=== PATIENT | female | born 1980 | race African-American/Black ===

== ENCOUNTER 2017-09-02 12:43 | Outpatient (CLI) | payer OTHER | END 2017-09-02 12:44 | disposition home or self-care (01) | LOC: DTY/OP 12:43 | PROVIDERS: ATTEND Specialist | DX: Z01.818 Encounter for other preprocedural examination (principal); E66.01 Morbid (severe) obesity due to excess calories | CPT/HCPCS: 36415; 80053; 80061; 82306; 82607; 82728; 82746; 83036; 83540; 84425; 84436; 84443; 84479; 85025; 86677; 97802 ==

== ENCOUNTER 2017-09-30 06:12 | Inpatient (IN) | payer OTHER ==
[2017-09-28 17:24] VITALS: BMI 46.0
--- NOTE | 2017-09-29 13:58 | ADD-HP ---
ADDENDUM HISTORY OR PRESENT ILLNESS: Brenda Mathews is a 36-year-old female with morbid obesity, attended ou r bariatric seminar and saw me preoperatively and has seen the psychologist and visited with Olga dietitian regarding perioperative dietary expectations and has obtained baseline bariatric labs in preparation for laparoscopic sleeve gastrectomy. She understands the risks and benefits of procedure and consents. Plan is for laparoscopic gastric bypass in the next 48 hours. The patient works in [employer]. She has tried numerous diets including Medi-Loss and phentermine without sustainable success in weight loss. When she was initially seen 08/25/2017 weight was 289 pounds, 46 BMI. Today it is 286 pounds, 46 BMI. PAST MEDICAL HISTORY: Please see recent history and physical. PHYSICAL EXAMINATION: GENERAL: 286 pounds, 133/68, 80 heart rate, 97 degrees, 5 feet 6 inches, 46 BMI. LUNGS: Clear to auscultation. CARDIAC: Regular rate and rhythm without murmur or gallop. ABDOMEN: Soft, nontender, extremely obese. EXTREMITIES: Unremarkable. ASSESSMENT: 46 BMI, 286 pounds. PLAN: Laparoscopic gastric bypass. She understands the risk of infection, bleeding, reoperation, an astomotic leakage and consents. Questions answered.
--- NOTE | 2017-09-29 14:01 | HP ---
HISTORY OF PRESENT ILLNESS: Brenda Mathews is a 36-year-old morbidly back female, 46 BMI, 5 feet 6 inches, 289 pounds, who has tried numerous weight loss efforts including Mediwatch, diet, phentermine losing only up to 10 or 15 pounds after several months efforts without durable results. She suffers comorbidities of diabetes mellitus type 2 on metformin, low back pain, arthralgias, and stress urina ry incontinence. 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 Her also works for the [employer]. They have both recently joined [employer] discovering that their emplo kash [facility] [employer] and pay for that. The patient has attended our bariatric seminar and is inte rested in laparoscopic Alyse-en-Y gastric bypass. She hopes to resolve her diabetes, be more interact heather with her children, see them grow up and prevent additional complications of diabetes and obesity. She has had friends that have undergone surgical weight loss and they have talked about this and sh e is ready to proceed. She is tearing at our bariatric seminar and understands the risk and benefits of surgery. Questions have been answered. Different surgical options discussed. Primary care phys ivánan is Dr. Gray who was very supportive of her surgical weight loss and her is very suppo rtive. She is a 3, para 3 children 10, 3, and 1 years of age. PAST SURGICAL HISTORY: Cholecystectomy, laparoscopic; left ankle surgery, wisdom tooth surgery, sali vary gland surgery for benign disease, with washout after that. MEDICATIONS: Metformin 850 twice a day and escitalopram once a day. ALLERGIES: ERYTHROMYCIN and PERCOCET. TOBACCO: None. ALCOHOL: None. PAST MEDICAL HISTORY: Diabetes mellitus type 2, noninsulin dependent, low back pain, arthralgias, kn ees and ankles; and stress urinary incontinence. REVIEW OF SYSTEMS: Ten point noncontributory. PHYSICAL EXAMINATION: VITAL SIGNS: 5 foot 6, 46 BMI, 289 pounds, 153/72, 84, 98 degrees. HEENT: Unremarkable. NEUROLOGIC: Intact. No focal deficits. No lymphadenopathy, neck, axillary or groins. LUNGS: Clear to auscultation. CARDIAC: Regular rate and rhythm without murmur or gallop. ABDOMEN: Soft, nontender. Obese. Infraumbilical incision present. Well-healed. Pfannenstiel inci casa from , abdominal washout, well healed. No hernias. Laparoscopic cholecystectomy. Tro car sites well healed. No hernias. EXTREMITIES: No ankle edema, no venous stasis disease. 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 She has a 46 BMI. After co nsidering her bariatric options, she is interested in laparoscopic sleeve gastrectomy. We have talke d about the risk of infection, bleeding, reoperation, anastomotic leakage, internal hernias. She und erstands risks, benefits, and consents. She will see the dietitian, psychologist, obtain baseline ba riatric labs and proceed with bariatric surgery.
[2017-09-30] MEDS ORDERED: Bupivacaine/Epinephrine 0.25% 30 ML VIAL ONE (06:32)
[2017-09-30] MEDS ORDERED: cefOXitin 2 GM, Syringe 1 ML in Sterile Water 10 ML SLOW IVP SCH (07:00)
[2017-09-30] MEDS ORDERED: Fentanyl 100 MCG/2 ML VIAL ONE ×3 (07:03→11:55)
[2017-09-30] MEDS ORDERED: Ketorolac Tromethamine 30 MG/ML VIAL ONE (07:04)
[2017-09-30] MEDS ORDERED: Scopolamine 1.5 mg/72 hour Patch ONE (07:04)
[2017-09-30] MEDS ORDERED: Heparin 5,000 UNITS/ML VIAL ONE (07:05)
[2017-09-30] MEDS ORDERED: Ondansetron ODT 4 MG TAB ONE (07:16)
[2017-09-30] MEDS ORDERED: SUGAMMADEX SODIUM 500 MG/5 ML VIAL ONE (09:00)
[2017-09-30] MEDS ORDERED: Promethazine HCl 25 MG/ML VIAL SLOW IVP PRN (11:05)
[2017-09-30] MEDS ORDERED: Promethazine HCl 25 MG/ML VIAL IM PRN ×3 (11:05→20:47)
[2017-09-30] MEDS ORDERED: Ondansetron HCl/PF 4 MG/2 ML Vial IVP PRN ×3 (11:05→20:47)
[2017-09-30] MEDS ORDERED: Promethazine HCl 25 MG/ML VIAL ONE (11:11)
[2017-09-30] MEDS ORDERED: Morphine 4 MG/ML Carpuject SLOW IVP PRN (11:19)
[2017-09-30] MEDS ORDERED: hydrALAZINE 20 MG/ML VIAL SLOW IVP PRN (11:19)
[2017-09-30] MEDS ORDERED: Hydrocodone-Acetamin 15 ML UDCUP PO PRN (11:19)
[2017-09-30] MEDS ORDERED: Dextrose 5% in Water 1,000 ML IV PRN ×2 (11:19→19:04)
[2017-09-30] MEDS ORDERED: diphenhydrAMINE 50 MG/ML VIAL IVP PRN ×2 (11:19→20:47)
[2017-09-30] MEDS ORDERED: Dextrose 50% Abboject 50 ML SYRINGE SLOW IVP PRN ×2 (11:19→19:04)
[2017-09-30] MEDS ORDERED: Ondansetron ORAL SOLN. 4 MG/5 ML UDCUP PO PRN ×2 (11:24)
[2017-09-30] MEDS ORDERED: Ondansetron ODT 4 MG TAB PO PRN (11:24)
[2017-09-30] MEDS ORDERED: Ondansetron ODT 8 MG TAB PO PRN (11:24)
[2017-09-30] MEDS ORDERED: Ondansetron ODT 8 MG TAB SL PRN (11:24)
[2017-09-30] MEDS ORDERED: Acetaminophen 325 MG/10.15 ML UDCUP PO PRN ×2 (11:26)
[2017-09-30] MEDS ORDERED: PROPOFOL 200 MG/20 ML VIAL ONE (12:04)
[2017-09-30] MEDS ORDERED: Lidocaine 1% PF 5 ML VIAL ONE (12:04)
[2017-09-30] MEDS ORDERED: Dexamethasone 20 MG/5 ML VIAL ONE (12:04)
[2017-09-30] MEDS ORDERED: Succinylcholine Chloride 20 MG/ML 10 ml SYRINGE FS ONE (12:04)
--- NOTE | 2017-09-30 12:27 | OP ---
DATE OF PROCEDURE: 09/30/2017 PREOPERATIVE DIAGNOSES: Morbid obesity, 46 BMI, 289 pounds. POSTOPERATIVE DIAGNOSES: Morbid obesity, 46 BMI, 289 pounds. PROCEDURE: Laparoscopic Alyse-en-Y gastric bypass, 150 cm Alyse limb, 25 mm EEA stapler. ESTIMATED BLOOD LOSS: Less than 25 mL. BLOOD TRANSFUSED: None. Gastrojejunostomy checked under water, no leaks. PROCEDURE: The patient was taken to the operating room where under general anesthesia, abdomen prepa red with ChloraPrep, draped in routine fashion. Supraumbilical incision made and pneumoperitoneum to 15 mmHg obtained with the Veress needle, replacing it with a 5 port and video laparoscope inserted. Bilateral far lateral subcostal incision made and 5 ports placed. Bilateral upper abdominal midclav icular incisions made and 12 mm port placed on the right and 15 mm port placed on the left, subxiphoi d incision made using the Oracio's arm retractor. The Tyra liver retractor was inserted in the abdominal cavity, reflecting the left lobe of the liver anteriorly and securing it. With the patient supine the greater omentum was adherent to the pelvis, abdominal wall and this was taken down with t he LigaSure. Omentum was split in the midline to the left of the falciform ligament up to the transv erse colon and split using the LigaSure noting good hemostasis. At this point, the colon reflected c ephalad and ligament of Treitz identified and approximately 20 cm from the ligament of Treitz, small bowel was divided with a CHELO white load stapler and the mesentery divided with CHELO white load stapler . Hemostasis gained with clips. The Alyse limb was devascularized approximately 5 cm. Alyse limb was then measured for about 150 cm and then a jejunojejunostomy anastomosis created between the Alyse barr b and the biliary limb with a CHELO 60 mm white load stapler. Common enterotomy closed with 2 fires of the white load stapler transversely and appreciated after completion to be nonobstructive. Mesenter ic defect closed with 2 interrupted [id number] sutures of 3-0 Vicryl. Small bowel to small marco l, seromuscular suture applied, 3-0 Vicryl to close this defect. At this point, the Alyse limb was th en brought between the split omentum into the left upper quadrant and the patient placed in reverse T rendelenburg. Along the lesser curvature of the stomach, the stomach dissected free and posterior sa c entered, visualized and all instruments removed from the oral cavity from the stomach by Anesthesia and a single fire blue load CHELO Endo stapler fired approximately 5 cm from the gastroesophageal junc tion along the lesser curvature, fired transversely. At this point, a gastrostomy was made with the LigaSure in the greater curvature of stomach just below this level and 25 mm EEA stapler inserted up towards the stomach pouch. The 5 mm band passer had been threaded with the attached suture and broug ht up and passed through the gastrostomy adjacent to the initially fired horizontal gastric staple li ne and cutting cautery current adjacent staple line used to open the stomach and the suture and anvil brought out through this jasper. The suture on the anvil was then grasped and reflected caudally and right lateral as the gastric pouch was formed with serial fires of the blue load stapler just to the patient's left of the angle of His. This has been cleared of attachments and the band passer used to facilitate this and stomach completely divided, the spleen kept free of harm. The gastrostomy initi ally made for placement of the anvil, closed with 2 fires transversely with a blue load CHELO stapler. Staple line was intact. Hemostasis gained with clip application. At this point, the Alyse limb was opened at the end and a 25 mm EEA stapler passed through the left upper quadrant port site and to the end of the Alyse limb and the anvil advanced out the antimesenteric border of a portion of the well v ascularized small bowel Alyse limb. This was then mated to the anvil in the stomach pouch where the _ ___ could be removed. These were then approximated within the torque fire range and the EEA stapler fired, creating a 25 mm EEA stapled gastrojejunostomy anastomosis. Once this was complete, the opene d end of the small bowel was resected with a fire of the CHELO white load stapler. The gastrojejunosto my anastomosis reinforced with 3-0 Vicryl Lembert sutures approximating the small bowel at the gastri c pouch, left posterior lateral, right posterolateral and right anterior lateral. Once this was acco mplished, this gastrojejunostomy was checked under water with an orogastric tube placed by Anesthesia passed through the gastrojejunostomy, the gastrojejunostomy visualized laparoscopically occluding th e outlet of the Alyse limb from the gastrojejunostomy with an atraumatic vascular clamp and insufflati ng under water, noting absence of any leak. Good hemostasis noted. The orogastric tube removed. Go od hemostasis assured. The 15 mm port site was closed with a [id number]-[id number] suture of 0 Vicryl pass ed with a GraNee needle under laparoscopic visualization. Good hemostasis noted and obtained with th e LigaSure, cautery, clips. Good hemostasis ensured. The liver retractor was removed and an irrigan t and pneumoperitoneum evacuated. All this instruments removed and the 15 mm port site left upper qu adrant irrigated with saline solution copiously and good hemostasis noted and all skin incisions appr oximated with interrupted subdermal 4-0 Monocryl and DermaGlue applied. The patient tolerated the pr ocedure well.
[2017-09-30] MEDS: Ketorolac Tromethamine 30 MG/ML VIAL IVP SCH ×3 (13:16→23:30)
[2017-09-30] MEDS: Acetaminophen 1,000 MG in Premix Bag 1 BAG IVPB SCH ×3 (13:16→23:30)
[2017-09-30] MEDS: 1/2 NS w/KCL 20 mEq 1,000 ML IV SCH ×2 (13:17→21:29)
[2017-09-30] MEDS ORDERED: Fentanyl 100 MCG/2 ML VIAL SLOW IVP PRN (15:20)
[2017-09-30] MEDS ORDERED: Fentanyl 100 MCG/2 ML VIAL SLOW IVP SCH (15:30)
[2017-09-30] MEDS: Fentanyl 100 MCG/2 ML VIAL SLOW IVP PRN ×2 (17:26→19:57)
[2017-09-30] MEDS ORDERED: Metoclopramide HCl 10 MG/2 ML VIAL IVP PRN (18:23)
[2017-09-30] MEDS ORDERED: HumaLOG 300 UNITS/3 ML VIAL SC PRN (19:04)
[2017-09-30] MEDS ORDERED: traMADol HCl 50 MG TAB PO PRN ×2 (19:04)
[2017-09-30] MEDS ORDERED: Fentanyl 5000 MCG/250 ML CADD IVPB PRN (20:47)
[2017-09-30] MEDS ORDERED: diphenhydrAMINE 50 MG/ML VIAL IM PRN (20:47)
[2017-09-30] MEDS ORDERED: Zolpidem Tartrate 5 MG TAB PO PRN (20:47)
[2017-09-30] MEDS ORDERED: diphenhydrAMINE 25 MG CAP PO PRN (20:47)
[2017-09-30] MEDS ORDERED: Naloxone HCl 0.4 mg/ml Vial IV PRN (20:47)
[2017-09-30] MEDS ORDERED: Enoxaparin Sodium 40 MG/0.4 ML SYRINGE SC SCH (21:00)
[2017-09-30] MEDS ORDERED: Communication Order-Pharmacy FS SCH (21:00)
[2017-09-30] MEDS: fentaNYL Citrate/PF 2,000 MCG in Sodium Chloride 0.9% 60 ML IV PRN (21:44)
[2017-10-01 04:57] LABS: #Lymphocytes 1.1 thou/uL (1.20-3.40); #Monocytes 0.9 thou/uL (0.11-0.59); #Neutrophils 7.8 thou/uL (1.40-6.50); %Eosinophils 0.1 % (0.0-10.0); %Lymphocytes 11.5 % (21.0-51.0); %Monocytes 9.1 % (0.0-10.0); %Neutrophils 79.3 % (42.0-75.0); Hemoglobin 10.1 g/dL (12.0-16.0); Mean Corpuscular HGB CONC 34.1 g/dL (32.0-36.0); Mean Corpuscular Hemoglobin 28.4 pg (27.0-31.0); Mean Corpuscular Volume 83.3 fl (81.0-99.0); Mean Platelet Volume 7.1 fL (7.4-10.4); Platelet Count 277 thou/uL (130-400); RBC Distribution Width 13.9 % (11.5-14.5); Red Blood Cell (RBC) Count 3.56 mill/uL (4.20-5.40); White Blood Cell (WBC) Count 9.9 thou/uL (4.8-10.8)
[2017-10-01] MEDS: Acetaminophen 1,000 MG in Premix Bag 1 BAG IVPB SCH ×2 (05:10→15:04)
[2017-10-01] MEDS: Ketorolac Tromethamine 30 MG/ML VIAL IVP SCH ×3 (05:10→18:16)
[2017-10-01 05:15] LABS: Anion Gap 9 mmol/L (10-20); BUN (Urea Nitrogen) 9 mg/dL (7.0-18.7); Calc. Creatinine Clearance 203 mL/min (70-130); Calcium 8.3 mg/dL (7.8-10.44); Carbon Dioxide 24 mmol/L (22-29); Chloride 105 mmol/L (98-107); Estimated GFR-MDRD Greater than 90; Glucose 126 mg/dL (70-105); Potassium 3.9 mmol/L (3.5-5.1); Sodium 134 mmol/L (136-145)
[2017-10-01] MEDS: 1/2 NS w/KCL 20 mEq 1,000 ML IV SCH ×2 (06:14→15:03)
--- NOTE | 2017-10-01 06:30 | PRG ---
DATE OF SERVICE: 10/01/2017 Brenda Mathews is doing well today. I had a discussion with the patient last night and she states t hat with her oxycodone allergy she can take Tylenol #3. The patient had problems with nausea last n ight and has not ambulated. Her nausea this morning has resolved. She feels much better. The pain in her left upper quadrant is greatly improved. She required a fentanyl EGG SORTER last night. PHYSICAL EXAMINATION: VITAL SIGNS: Temperature 98.5 degrees, 88, 17, 120/72. LABORATORY: This morning her white count is 9, hemoglobin 10.1, sodium 134, BUN 9, creatinine 0.78, potassium 3.9. Accu-Cheks 137 to 128. ASSESSMENT AND PLAN: The patient is doing well today. She will begin liquids, increase her activity and she possibly could be discharged home later today. I have discussed with her her pain medicatio n management. We will plan Tylenol elixir orally as needed, Ultram pills (they are small) cut in luke f or thirds (status post gastric bypass) and she has Tylenol #3 elixir to use if necessary. She has Zofran ODT as necessary. The patient possibly could be discharged home later today or in the morning pending her clinical course today. LUNGS: Clear to auscultation. CARDIAC: Regular rate and rhythm without murmur or gallop. ABDOMEN: Soft, nontender. Wounds clean and dry. PLAN: As above.
[2017-10-01] MEDS ORDERED: Pantoprazole 40 MG VIAL IVP SCH (09:00)
[2017-10-01 12:38] LABS: Hemoglobin 9.4 g/dL (12.0-16.0)
[2017-10-01] MEDS ORDERED: Lidocaine 1% PF 5 ML VIAL ONE (12:54)
[2017-10-01] MEDS ORDERED: PROPOFOL 200 MG/20 ML VIAL ONE (12:54)
[2017-10-01] MEDS ORDERED: Succinylcholine Chloride 20 MG/ML 10 ml SYRINGE FS ONE (12:54)
--- NOTE | 2017-10-01 16:41 | NM ---
RADIONUCLIDE GI BLEEDING SCAN 10/01/17 HISTORY: Melena. Recent Alyes-En-Y gastric bypass. FINDINGS: Early images show physiologic uptake of radiotracer within the vascular system. At two minutes, abnor mal uptake is apparent within the left upper quadrant, becoming more intense and eventually descendin g to the left lower abdomen in an irregular direction, and eventually extending to the right abdomen. IMPRESSION: Left upper quadrant enteric hemorrhage. The appearance is most suggestive of a proximal small bowel h emorrhage. In the setting of recent gastric bypass, the bleeding origin could be within a gastric rem nant that does not flow into the duodenum, as the duodenum is not filled with the radiotracer. Findings were called to Dr. Serna at 1559 hours. Code CR POS: OCTAVIO
[2017-10-01 17:21] LABS: Hemoglobin 8.3 g/dL (12.0-16.0)
[2017-10-01] MEDS ORDERED: Acetaminophen/Codeine 12.5 ML UDCUP PO PRN (18:00)
[2017-10-01] MEDS ORDERED: Lactated Ringer's 1,000 ML IV SCH (18:00)
[2017-10-01] MEDS: Lactated Ringer's 1,000 ML IV SCH (19:05)
--- NOTE | 2017-10-01 19:06 | PRG ---
DATE OF SERVICE: 10/01/2017 She, after I saw her this morning, developed a bloody bowel movement. This was maroon bloody stool. She had three bloody bowel movements this morning, but since 1 o'clock has not had any. She complai ns of left upper quadrant pain. Her preoperative hemoglobin was 13, this morning, it was 10.1 at 040 0 hours, at noon it was 9.4 and at 0511 hours, it was 8.3. Her blood pressure and heart rate have re mained stable until in the last 30 minutes, her blood pressure has been systolic 80-90 with a normal heart rate in the 80s. She feels slightly weak. She has been ambulating, tolerating her liquids. S he had a nuclear bleeding scan suggesting ongoing bleeding in her upper abdomen, suspect gastrojejuno stomy. I have talked to Dr. Bucky Nye who had seen her who will plan upper endoscopy this evening . We were trying to avoid this, but does not seem to be avoidable. We will transfuse 1 unit of bloo d, give her a liter of LR IV and transfer her to the [facility] for closer observation.
[2017-10-01] MEDS ORDERED: Ondansetron HCl/PF 4 MG/2 ML Vial IVP PRN (20:59)
[2017-10-01] MEDS ORDERED: Meperidine HCl/PF 25 MG/ML VIAL SLOW IVP PRN (20:59)
[2017-10-01] MEDS ORDERED: Promethazine HCl 25 MG/ML VIAL SLOW IVP PRN (20:59)
[2017-10-01] MEDS ORDERED: Promethazine HCl 25 MG/ML VIAL IM PRN (20:59)
[2017-10-01] MEDS ORDERED: Fentanyl 100 MCG/2 ML VIAL ONE (21:25)
[2017-10-01 22:18] LABS: #Eosinphils 0.2 thou/uL (0.0-0.7); #Lymphocytes 2.3 thou/uL (1.20-3.40); #Monocytes 0.8 thou/uL (0.11-0.59); #Neutrophils 6.1 thou/uL (1.40-6.50); %Basophils 0.1 % (0.0-1.0); %Lymphocytes 24.8 % (21.0-51.0); %Monocytes 8.2 % (0.0-10.0); %Neutrophils 64.9 % (42.0-75.0); Hemoglobin 8.2 g/dL (12.0-16.0); Mean Corpuscular HGB CONC 33.5 g/dL (32.0-36.0); Mean Corpuscular Hemoglobin 28.1 pg (27.0-31.0); Mean Corpuscular Volume 83.8 fl (81.0-99.0); Mean Platelet Volume 7.1 fL (7.4-10.4); Platelet Count 235 thou/uL (130-400); RBC Distribution Width 14.2 % (11.5-14.5); Red Blood Cell (RBC) Count 2.93 mill/uL (4.20-5.40); White Blood Cell (WBC) Count 9.4 thou/uL (4.8-10.8)
[2017-10-01] MEDS: Pantoprazole 40 MG VIAL IVP SCH (22:58)
[2017-10-02] MEDS: Ketorolac Tromethamine 30 MG/ML VIAL IVP SCH ×4 (00:29→18:33)
--- NOTE | 2017-10-02 00:44 | CON ---
DATE OF CONSULTATION: 10/01/2017 REASON FOR CONSULTATION: Hematochezia, status post Alyse-en-Y gastric bypass. CONSULTING PHYSICIAN: Dr. Sheldon Serna. HISTORY OF PRESENT ILLNESS: Patient is a 37-year-old -[place] female with past medical histo ry of diabetes, chronic lower back pain, stress urinary incontinence, and morbid obesity who presents with complaints of hematochezia. She had been followed by the general surgery service for her morbi d obesity with plans to undergo Alyse-en-Y gastric bypass, which was performed on 09/30/2017. She was having a fairly uneventful recovery until this morning when she had an occurrence of bright red bloo d per rectum, characterized as maroonish colored stool that was present in both the toilet and on the toilet paper. The amount of this bloody stool was significant to the point to alert the nursing sta ff. Since that time, she has had two further maroon-colored stools associated with mild diaphoresis with increased concern for GI bleeding. She ultimately underwent a nuclear bleeding scan which sugge sted ongoing bleeding in the upper abdomen with consideration for the gastrojejunostomy. Currently, she denies any nausea, vomiting, fevers, chills, shortness of breath, chest pain, melena, dysphagia o r odynophagia. She does continue to have some minimal abdominal pain located at the left upper quadr ant directly underneath one of the trocar incision sites. REVIEW OF SYSTEMS: A 10-point review category review of systems was obtained with all responses nega tive except for the pertinent positives as listed in the HPI. PAST MEDICAL HISTORY: Per HPI. PAST SURGICAL HISTORY: Laparoscopic cholecystectomy, left ankle surgery, salivary gland surgery for benign disease, with washout. FAMILY HISTORY: Denies any GI malignancies. SOCIAL HISTORY: Denies any tobacco, alcohol or illicit drug use. OUTPATIENT MEDICATIONS: Reviewed. ALLERGIES: ERYTHROMYCIN and PERCOCET. PHYSICAL EXAMINATION: VITAL SIGNS: Temperature 98.8, pulse 87, blood pressure 113/47, respiratory rate 18, satting 98% on room air. GENERAL: The patient is lying in bed in no acute distress. Alert and oriented x4. NECK: Supple. No JVD noted. CARDIOVASCULAR: Regular rate and rhythm with no discernible murmurs, gallops or rubs. RESPIRATORY: Clear to auscultation bilaterally with no discernible wheezes or rales. ABDOMEN: Normoactive bowel sounds, soft, nondistended. Tenderness to palpation along the incision t rocar sites especially in the left upper quadrant. Incision sites look clean, dry, and intact. EXTREMITIES: No cyanosis, clubbing or edema. LABORATORY DATA: CBC with a white blood cell count of 9.9, hemoglobin of 8.3, hematocrit 24.8, plate lets 277. Chemistry with sodium of 134, potassium 3.9, chloride 105, carbon dioxide 24, BUN 9, creat inine 0.78, glucose 126. IMAGING DATA: Tagged red blood cell scan obtained on 10/01/2017 showed abnormal uptake apparent with in the left upper quadrant, becoming more intense and eventually descending to the left lower abdomen in a regular direction and eventually extending to the right abdomen. This is suggestive of a proxi mal small bowel hemorrhage and in light of the recent gastric bypass, bleeding could be within a hakeem ramona remnant that does not flow into the duodenum. 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 Hematochezia. The patient is now presenting status post Alyse-en-Y gastric bypass on 09/30/2017 and h ad been undergoing a fairly uneventful recovery when she had acute onset of bright red blood per rect um this morning. She had two further episodes of hematochezia that was associated with a mild drop i n her blood pressure as well as a significant decrease in her H&H, concern for active gastrointestina l bleeding. A tagged red cell scan was subsequently performed that was suggestive of proximal small bowel hemorrhage. At this point, the origin of the bleeding is unknown, but is suggestive of possibl e bleeding at the gastrojejunal anastomosis in which case endoscopic evaluation is indicated with pos sible hemostatic measures per procedure. RECOMMENDATIONS: 1. Keep patient n.p.o. for procedure later tonight. 2. We will plan for EGD later tonight with minimal insufflation of air to evaluate the gastrojejunal anastomosis and evaluation of possible gastrointestinal bleeding. 3. Continue to trend H&H and transfuse as necessary to maintain an H&H of 7/21. 4. Continue to monitor clinically for signs of active gastrointestinal bleeding. 5. Continue pantoprazole b.i.d. for probable active gastrointestinal bleeding.
[2017-10-02] MEDS: Lactated Ringer's 1,000 ML IV SCH (04:46)
--- NOTE | 2017-10-02 05:31 | OP ---
DATE OF PROCEDURE: 10/01/2017 PROCEDURE: Esophagogastroduodenoscopy (diagnostic). INDICATION FOR PROCEDURE: Hematochezia, abnormal GI imaging. DESCRIPTION OF PROCEDURE: After the risks and benefits of the procedure were explained to the patien t including risks of bleeding, infection, perforation, reaction to the anesthesia and/or pain, inform ed consent was obtained. The patient was then taken to the endoscopy suite, where general endotrache al tube anesthesia was administered via Anesthesia support. The standard gastroscope was then introd uced into the mouth with intubation of the esophagus, gastric pouch, and proximal small intestine wit h the findings listed below. The patient tolerated the procedure well with no immediate perioperativ e complications. FINDINGS: Esophagus: Normal-appearing mucosa was seen in the proximal, mid and distal esophagus. There was no evidence of erosions, ulcerations, mass lesions or active/recent bleeding. Stomach: Surgical change associated with a Alyse-en-Y gastric bypass was seen upon initial entry into the gastric pouch. Along the suture line was ulcerated mucosa with scattered clot material and fibr inous debris, but there was no evidence of active bleeding seen at this particular site. Minimal ins ufflation of air was attempted to avoid injury to the anastomosis line itself with instillation of no rmal saline instilled to achieve adequate visualization of the gastric mucosa. There was no evidence of mass lesions seen during this portion of the examination. Despite provocative maneuvers in order to induce bleeding with normal saline and manipulation with the gastroscope, no active bleeding was seen. Proximal small intestine: Normal-appearing mucosa was seen in the proximal small intestine/efferent limb coming from the gastric pouch and extending distally. Upon maximal extension of the gastroscope , there was no evidence of active/recent bleeding. IMPRESSION: 1. Surgical change associated with recent Alyse-en-Y gastric bypass. 2. Ulceration and clot material seen along the anastomosis line at the gastrojejunostomy with no lore dence of active bleeding. 3. Intact efferent limb with no evidence of active/recent bleeding seen in this particular region. RECOMMENDATIONS: 1. We would keep the patient n.p.o. for now and continue to monitor for signs of active gastrointest inal bleeding. 2. We will continue to trend H&H and transfuse as necessary to maintain an H&H of 7/21. 3. If continued drop in H&H, we would consider repeat EGD versus evaluation of the jejunojejunostomy as possible sites for active bleeding. We will continue to monitor. Please call with any questions.
[2017-10-02 05:48] LABS: #Eosinphils 0.4 thou/uL (0.0-0.7); #Lymphocytes 2.4 thou/uL (1.20-3.40); #Monocytes 0.8 thou/uL (0.11-0.59); #Neutrophils 6.9 thou/uL (1.40-6.50); %Basophils 0.1 % (0.0-1.0); %Eosinophils 4.3 % (0.0-10.0); %Lymphocytes 22.5 % (21.0-51.0); %Monocytes 7.9 % (0.0-10.0); %Neutrophils 65.3 % (42.0-75.0); Hemoglobin 7.8 g/dL (12.0-16.0); Mean Corpuscular HGB CONC 34.4 g/dL (32.0-36.0); Mean Corpuscular Hemoglobin 28.8 pg (27.0-31.0); Mean Corpuscular Volume 83.8 fl (81.0-99.0); Mean Platelet Volume 7.1 fL (7.4-10.4); Platelet Count 218 thou/uL (130-400); RBC Morphology Normal; White Blood Cell (WBC) Count 10.5 thou/uL (4.8-10.8)
[2017-10-02] MEDS: fentaNYL Citrate/PF 2,000 MCG in Sodium Chloride 0.9% 60 ML IV PRN (08:46)
[2017-10-02] MEDS: Pantoprazole 40 MG VIAL IVP SCH ×2 (09:42→20:15)
[2017-10-02 11:07] LABS: #Basophils 0.1 thou/uL (0.0-0.2); #Eosinphils 0.4 thou/uL (0.0-0.7); #Monocytes 0.8 thou/uL (0.11-0.59); #Neutrophils 6.9 thou/uL (1.40-6.50); %Basophils 0.7 % (0.0-1.0); %Eosinophils 3.7 % (0.0-10.0); %Lymphocytes 19.8 % (21.0-51.0); %Monocytes 8.1 % (0.0-10.0); %Neutrophils 67.7 % (42.0-75.0); Hemoglobin 7.7 g/dL (12.0-16.0); Mean Corpuscular HGB CONC 32.7 g/dL (32.0-36.0); Mean Corpuscular Hemoglobin 27.9 pg (27.0-31.0); Mean Corpuscular Volume 85.3 fl (81.0-99.0); Mean Platelet Volume 6.7 fL (7.4-10.4); Platelet Count 229 thou/uL (130-400); RBC Distribution Width 14.1 % (11.5-14.5); Red Blood Cell (RBC) Count 2.77 mill/uL (4.20-5.40); White Blood Cell (WBC) Count 10.2 thou/uL (4.8-10.8)
--- NOTE | 2017-10-02 12:24 | CON ---
DATE OF CONSULTATION: 10/02/2017 SERVICE: Pulmonary Medicine. REASON FOR CONSULTATION: IMCU patient. HISTORY OF PRESENT ILLNESS: The patient is a 37-year-old female with past medical history significant for morbid obesity. She presented to the hospital for an elective Alyse-en-Y gastric bypass surgery. She had a fairly uneventful postop period except for significant bloody bowel movements. She has been observed very closely. Her hemoglobins have been really fallen off too much over the last couple of days. She denies any abdominal discomfort or chest pain. She is tolerating p.o. She has had 4 bowel movements over the last 24 hours that continued to be persistently bloody. Otherwise, there has been no interval change to her condition. She denies any fevers, chills, nausea , vomiting, cough, sputum production, or dysuria. PAST MEDICAL HISTORY: 1. Type 2 diabetes mellitus. 2. Chronic low back pain. 3. Osteoarthritis. 4. Morbid obesity. 5. Stress incontinence. PAST SURGICAL HISTORY: 1. Cholecystectomy. 2. Left ankle surgery. 3. Extraction of wisdom teeth. 4. section. 5. Salivary gland tumor excision. SOCIAL HISTORY: Negative for alcohol, tobacco or illicit drug use. She has no exposure to chemicals, dust, asbestos or tuberculosis. She works in [employer]. FAMILY HISTORY: Noncontributory. ALLERGIES: ERYTHROMYCIN, PERCOCET. MEDICATIONS: List of inpatient medications was reviewed. No updates were made at this time. REVIEW OF SYSTEMS: General, head, ears, eyes, nose, throat, cardiovascular, respiratory, GI, , musculoskeletal, neurologic and skin is negative except as mentioned in the HPI. PHYSICAL EXAMINATION: VITAL SIGNS: Afebrile, pulse 104, blood pressure 107/60, respirations 18, saturation 100% on room air. GENERAL: The patient is awake and alert. She is in no apparent distress, breathing comfortably. HEENT: Normocephalic, atraumatic. Sclerae are white. Conjunctivae pink. Oral and nasal mucosa is moist without lesions. LUNGS: Excellent air entry. There is no prolonged expiratory phase or wheezing present. HEART: Normal rate, regular. ABDOMEN: Soft, nontender, nondistended. Bowel sounds are positive. MUSCULOSKELETAL: No cyanosis or clubbing. There is no pitting in the bilateral lower extremities. NEUROLOGIC: Grossly nonfocal. LABORATORY DATA: Hemoglobin 7.7 and stable over the past 6 hours. Otherwise, it is unremarkable. Blood sugars ranged from 99-128. IMAGING: Nuclear GI bleed scan demonstrates left upper quadrant enteric hemorrhage, suggestive of a proximal small bowel hemorrhage. The duodenum is not filled with radiotracer. ASSESSMENT: 1. Alyse-en-Y gastric bypass surgery, postoperative day #2. 2. Acute blood loss anemia. 3. Gastrointestinal bleed. PLAN: We will continue following hemoglobins. Hopefully, her stools will start to clear. Once she demonstrates stability there and her stools clear, she will be ready for transition out of the hospital. For the time being, Pulmonary will continue to follow along particularly while she remains in this location. When she goes to the floor, I will sign off. Please call with additional questions or concerns moving forward. 70 minutes have been devoted to this patient in various activities. I personally reviewed all imaging studies and laboratory data noted within this document. For fifty percent of this time, I was interacting with the patient at the bedside or coordinating care with the care team. For the remainder of the time I was immediately available to the patient in the hospital unit. ARTHUR
[2017-10-02] MEDS ORDERED: Acetaminophen/Codeine 12.5 ML UDCUP PO PRN (12:33)
--- NOTE | 2017-10-02 12:48 | PRG ---
DATE OF SERVICE: 10/02/2017 Brenda Mathews is doing well today. She underwent upper endoscopy yesterday by Dr. Nye. This rev ealed some residual clot in the gastrojejunostomy area, perhaps stigmata of recent bleeding, but no a ctive bleeding. Intervention was not necessary. She has continued to be watched in IMCU. This morning her heart rate is 98.7 degrees, 89, 16, blood pressure 107/60. Her hemoglobin this morning is 7.8 down from 8.2 last night. This was rechecked again at 10:51, it was 7.7. The patient did have a bowel movement with some old blood earlier this morning, but no acti ve bleeding. She feels much better. The pain, left upper quadrant is greatly improved. At this poi nt, she is doing very well. LUNGS: Clear to auscultation. CARDIAC: Regular rate and rhythm without murmur or gallop. ABDOMEN: Soft. Surgical sites clean, clear and dry. ASSESSMENT AND PLAN: Postoperative bleeding, probably from the gastrojejunostomy anastomosis. No ac tive bleeding seen on upper endoscopy, although hours prior she had a bloody bowel movement. The pat ient's nuclear medicine scan showed probable active bleeding at the gastrojejunostomy site, but endos copy approximately 5 hours later did not show any active bleeding. The patient is feeling better. The plan at this time is to check another hemoglobin later this afternoon and this evening and again in the morning. 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 She possibly could go home later today or in the morning pending he r clinical course and serial hemoglobins.
[2017-10-02] MEDS ORDERED: Cyanocobalamin 1000 MCG/ML VIAL IM SCH (13:00)
[2017-10-02] MEDS: Acetaminophen 650 MG/20.3 ML UDCUP PO PRN (13:30)
[2017-10-02 16:29] LABS: #Basophils 0.1 thou/uL (0.0-0.2); #Eosinphils 0.4 thou/uL (0.0-0.7); #Lymphocytes 2.8 thou/uL (1.20-3.40); #Monocytes 0.8 thou/uL (0.11-0.59); #Neutrophils 5.7 thou/uL (1.40-6.50); %Basophils 0.5 % (0.0-1.0); %Eosinophils 4.2 % (0.0-10.0); %Lymphocytes 28.6 % (21.0-51.0); %Monocytes 8.1 % (0.0-10.0); %Neutrophils 58.5 % (42.0-75.0); Hemoglobin 7.9 g/dL (12.0-16.0); Mean Corpuscular HGB CONC 34.6 g/dL (32.0-36.0); Mean Corpuscular Hemoglobin 29.3 pg (27.0-31.0); Mean Corpuscular Volume 84.7 fl (81.0-99.0); Mean Platelet Volume 7.1 fL (7.4-10.4); Platelet Count 213 thou/uL (130-400); RBC Distribution Width 13.9 % (11.5-14.5); White Blood Cell (WBC) Count 9.7 thou/uL (4.8-10.8)
--- NOTE | 2017-10-02 17:26 | PRG ---
DATE OF SERVICE: 10/02/2017 REASON FOR CONSULTATION: GI bleeding. SUBJECTIVE: Patient states that she is feeling better today after upper endoscopy yesterday evening. She did have 2 additional episodes of maroon colored stool earlier this morning, but this has since abated with no further episodes since then. She does have some continued left upper quadrant abdomi nal pain located directly beneath one of her trocar incision sites, but otherwise is doing fine. Den ies any nausea, vomiting, fevers, chills, hematemesis or melena. OBJECTIVE: VITAL SIGNS: Temperature 98.8, pulse 89, blood pressure 103/56, respiratory rate 16, satting 97% on room air. GENERAL: Patient is sitting at bedside in no acute distress. Alert and oriented x4. CARDIOVASCULAR: Regular rate and rhythm. RESPIRATORY: Clear to auscultation bilaterally. ABDOMEN: Normoactive bowel sounds, soft, and nondistended. Tenderness to palpation along the incisi on trocar sites, especially in the left upper quadrant. EXTREMITIES: No cyanosis, clubbing or edema. LABORATORY DATA: CBC with white blood cell count of 10.5, hemoglobin 7.8, hematocrit 22.6, and plate lets 218. IMAGING DATA: No current GI imaging is available for review. 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 Gastrointestinal bleeding; the patient presented post Alyse-en-Y gastric bypass on 10/01/2017 with inc reased bright red/maroon colored stool concerning for gastrointestinal bleeding source. She ultimate ly underwent upper endoscopy on 10/01/2017 which showed ulceration at the surgical anastomosis site w ith blood clots more associated with healing anastomosis. There was no evidence of active bleeding d uring that examination with no targets for intervention. Today, she has had 2 further episodes of br ight red blood per rectum with a mild drop in her hemoglobin and hematocrit, concerning for continued GI bleeding, but at this point, the source is unknown. Differential at this point could include occ ult bleeding at the gastrojejunal anastomosis, jejunojejunal anastomosis or possible AVM or other les ion within the GI tract (less likely). RECOMMENDATIONS: 1. Would continue to trend hemoglobin and hematocrit and transfuse as necessary to maintain hemoglob in and hematocrit of 7/21. 2. Continue to monitor for signs of active gastrointestinal bleeding. 3. Continue pantoprazole b.i.d. for possible gastrointestinal bleeding. 4. Advance diet as tolerated per surgical service. 5. We will continue to monitor. We will continue to follow. Please call with any questions.
[2017-10-02] MEDS ORDERED: traMADol HCl 50 MG TAB PO PRN (18:30)
[2017-10-02] MEDS: Acetaminophen/Codeine 120-12MG/5 ML UDCUP PO PRN (19:02)
[2017-10-02 20:57] LABS: #Eosinphils 0.6 thou/uL (0.0-0.7); #Lymphocytes 2.6 thou/uL (1.20-3.40); #Monocytes 0.9 thou/uL (0.11-0.59); #Neutrophils 6.7 thou/uL (1.40-6.50); %Basophils 0.2 % (0.0-1.0); %Eosinophils 5.2 % (0.0-10.0); %Lymphocytes 24.3 % (21.0-51.0); %Monocytes 8.3 % (0.0-10.0); Hemoglobin 7.5 g/dL (12.0-16.0); Mean Corpuscular HGB CONC 33.7 g/dL (32.0-36.0); Mean Corpuscular Hemoglobin 28.5 pg (27.0-31.0); Mean Corpuscular Volume 84.6 fl (81.0-99.0); Mean Platelet Volume 6.6 fL (7.4-10.4); Platelet Count 209 thou/uL (130-400); RBC Distribution Width 13.9 % (11.5-14.5); Red Blood Cell (RBC) Count 2.63 mill/uL (4.20-5.40); White Blood Cell (WBC) Count 10.8 thou/uL (4.8-10.8)
[2017-10-03] MEDS: traMADol HCl 50 MG TAB PO PRN ×2 (01:16→20:43)
[2017-10-03] MEDS: Acetaminophen 650 MG/20.3 ML UDCUP PO PRN (04:05)
[2017-10-03 04:08] LABS: #Eosinphils 0.6 thou/uL (0.0-0.7); #Lymphocytes 2.6 thou/uL (1.20-3.40); #Neutrophils 8.6 thou/uL (1.40-6.50); %Basophils 0.2 % (0.0-1.0); %Eosinophils 4.6 % (0.0-10.0); %Lymphocytes 20.3 % (21.0-51.0); %Monocytes 7.6 % (0.0-10.0); %Neutrophils 67.3 % (42.0-75.0); Hemoglobin 8.1 g/dL (12.0-16.0); Mean Corpuscular HGB CONC 33.7 g/dL (32.0-36.0); Mean Corpuscular Hemoglobin 28.6 pg (27.0-31.0); Mean Corpuscular Volume 84.8 fl (81.0-99.0); Platelet Count 261 thou/uL (130-400); Red Blood Cell (RBC) Count 2.82 mill/uL (4.20-5.40); White Blood Cell (WBC) Count 12.7 thou/uL (4.8-10.8)
[2017-10-03 04:23] LABS: Anion Gap 10 mmol/L (10-20); BUN (Urea Nitrogen) 9 mg/dL (7.0-18.7); Calc. Creatinine Clearance 196 mL/min (70-130); Calcium 8.5 mg/dL (7.8-10.44); Carbon Dioxide 24 mmol/L (22-29); Chloride 108 mmol/L (98-107); Estimated GFR-MDRD Greater than 90; Glucose 102 mg/dL (70-105); Potassium 3.9 mmol/L (3.5-5.1); Sodium 138 mmol/L (136-145)
--- NOTE | 2017-10-03 06:22 | PRG ---
DATE OF SERVICE: 10/03/2017 SERVICE: Pulmonary Medicine. INTERVAL HISTORY: The patient is doing fine from a respiratory standpoint. She denies any chest susan n, nausea, vomiting or shortness of breath. She actually feels much improved. She has not had blood y bowel movements since yesterday afternoon prior to me seeing her previously. She has a good appeti te. She has no specific complaints today. There were no episodes overnight. PHYSICAL EXAMINATION: VITAL SIGNS: Currently afebrile. T-max overnight 99.8. Pulse 100, blood pressure 107/54, respirati ons 18, and saturation 100% on room air. GENERAL: The patient is awake, alert, in no apparent distress. LUNGS: There is excellent air entry with no prolonged expiratory phase. I do not appreciate wheezin g, rhonchi or crackles. HEART: Normal rate, regular. ABDOMEN: Minimal tenderness to palpation without rebound or guarding. Bowel sounds are active. GENITOURINARY: No Contreras. NEUROLOGIC: Grossly nonfocal. LABORATORY DATA: WBC 12.7, hemoglobin 8.1 and stable. Blood sugars ranged from 84 up to 100. Basic metabolic profile is otherwise unremarkable. Her chloride is minimally elevated at 108. Sodium is trending upward into the normal range. ASSESSMENT: 1. Acute blood loss anemia. 2. Alyse-en-Y gastric bypass surgery, postoperative day #3. 3. Gastrointestinal bleed. DISCUSSION AND PLAN: It is reassuring that she has not had a bloody bowel movement in over 12 hours where she was previously having them frequently. Her hemoglobins appeared to have stabilized. We ca n repeat a hemoglobin this afternoon. From my perspective, she is stable for transition out of the I MCU. When she leaves this location, I will sign off. Please call with additional questions or pippa rns moving forward.
[2017-10-03] MEDS: Pantoprazole 40 MG VIAL IVP SCH ×2 (09:09→20:45)
--- NOTE | 2017-10-03 14:24 | PRG ---
DATE OF SERVICE: 10/03/2017 REASON FOR CONSULTATION: GI bleeding. SUBJECTIVE: The patient states that she had 1 small dark red bowel movement this morning, but had not had any further bleeding since yesterday morning. At this time, she denies any nausea, vomiting, fevers, chills, hematemesis, melena or further episodes of bright red blood per rectum since the one this morning. She does continue to have some abdominal pain, but located primarily above the trocar incision sites. OBJECTIVE: VITAL SIGNS: Temperature 98.7, pulse 100, blood pressure 95/58, respiratory rate 18, satting 100% on room air. GENERAL: The patient is sitting at bedside, in no acute distress. Alert and oriented x4. CARDIOVASCULAR: Regular rate and rhythm. RESPIRATORY: Clear to auscultation bilaterally. ABDOMEN: Normoactive bowel sounds, soft, nondistended. Tenderness to palpation along the incision trocar sites in the left upper quadrant. EXTREMITIES: No cyanosis, clubbing or edema. LABORATORY DATA: CBC with a white blood cell count 12.7, hemoglobin 8.1, hematocrit 23.9, platelets 261. IMAGING DATA: No current GI imaging is available for review. ASSESSMENT AND PLAN: The patient is a 37-year-old female with past medical history of diabetes, chronic lower back pain, stress urinary incontinence, and morbid obesity now status post Alyse-en-Y gastric bypass with gastrointestinal bleeding. Gastrointestinal bleeding: The patient presented for Alyse-en-Y gastric bypass on 10/01/2017 with the appearance of hematochezia in the postoperative period. She ultimately underwent an EGD on 10/01/2017, which showed ulceration and blood clots at the surgical anastomosis without signs of active bleeding. She did have some continued bright red bloody bowel movements, but this has since been decreasing since endoscopy and per evaluation, her H&H is now up trending. At this point, the origin of her GI bleed is slightly unclear as it could have been bleeding due to surgical change at the gastrojejunal anastomosis versus the jejunojejunal anastomosis. In any case, the appearance of his blood is slowing down and with up trending of her H&H is reassuring for cessation of the bleeding. RECOMMENDATIONS: 1. We would continue to trend H&H and transfuse as necessary to maintain an H& H of 7/21. 2. Continue to monitor for signs of active gastrointestinal bleeding. 3. Continue pantoprazole b.i.d. for possible gastrointestinal bleeding in the upper gastrointestinal tract. 4. Advance diet as tolerated per surgical service. 5. If the patient has increased hematochezia and a significant drop in her H&H , we would consider repeat upper endoscopy for reevaluation of the gastrojejunal anastomosis; however, a jejunojejunal anastomotic bleed is within the differential, which is outside the realm of our capabilities. We will sign off at this time. Please call with any additional questions or change in the patient's clinical status. ARTHUR
[2017-10-03] MEDS: Acetaminophen/Codeine 120-12MG/5 ML UDCUP PO PRN (17:01)
[2017-10-03] MEDS: Ketorolac Tromethamine 30 MG/ML VIAL IVP PRN (20:44)
[2017-10-04] MEDS: traMADol HCl 50 MG TAB PO PRN ×2 (03:52→10:42)
[2017-10-04] MEDS: Ketorolac Tromethamine 30 MG/ML VIAL IVP PRN (03:53)
[2017-10-04 05:34] LABS: #Eosinphils 0.5 thou/uL (0.0-0.7); #Lymphocytes 1.7 thou/uL (1.20-3.40); #Monocytes 0.8 thou/uL (0.11-0.59); #Neutrophils 6.8 thou/uL (1.40-6.50); %Basophils 0.4 % (0.0-1.0); %Eosinophils 4.7 % (0.0-10.0); %Monocytes 8.2 % (0.0-10.0); %Neutrophils 69.6 % (42.0-75.0); Hemoglobin 7.7 g/dL (12.0-16.0); Mean Corpuscular HGB CONC 33.8 g/dL (32.0-36.0); Mean Corpuscular Hemoglobin 28.6 pg (27.0-31.0); Mean Corpuscular Volume 84.6 fl (81.0-99.0); Mean Platelet Volume 6.6 fL (7.4-10.4); Platelet Count 269 thou/uL (130-400); RBC Distribution Width 13.9 % (11.5-14.5); White Blood Cell (WBC) Count 9.8 thou/uL (4.8-10.8)
[2017-10-04] MEDS: Pantoprazole 40 MG VIAL IVP SCH (09:00)
[2017-10-04 12:02] VITALS: BP 105/64; TEMP 98.3
--- NOTE | 2017-10-05 14:59 | DIS ---
DATE OF ADMISSION: 09/30/2017 DATE OF DISCHARGE: 10/04/2017 DISCHARGE DIAGNOSES: Morbid obesity, postoperative bleeding, 1 unit of blood transfused, admission h emoglobin 13, discharge hemoglobin 7.7. PROCEDURES DURING THIS HOSPITALIZATION: Nuclear bleeding scan; upper endoscopy noting gastrojejunost neal, stigmata of recent bleeding, no active bleeding. CONSULTATION: Dr. Nye, Gastroenterology. 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 Past history of cholecystectomy. The patient un derwent laparoscopic Alyse-en-Y gastric bypass. Postoperatively, she did well, but had a bloody bowel movement the next day. Her hemoglobin was followed and she had subsequent more bloody bowel movemen ts and hemoglobin dropped slowly to 9. She was feeling weak and her blood pressures were in the 80s to 90s. She was given 1 unit of blood. After this, she felt much better. She continued to be able to walk at the hallways and do well. Nuclear bleeding scan obtained suggested active bleeding. Dr. Nye was consulted and upper endoscopy performed without active bleeding noted. She was observed un til the date of discharge and discharged home consuming her liquid diet. She was sent home with Tyle nol No. 3 elixir. She is allergic to OXYCODONE. She is also sent home with Ultram as needed. She w ill follow up in my office in about 1 to 2 weeks.
== END 2017-10-04 13:58 | disposition home or self-care (01) | DRG 620 ==
LOC: SDC 06:12 → SURG B 12:54 → IMCU/EMU 10-01 18:40 → SURG B 10-03 14:52
PROVIDERS: ADMIT Specialist; ATTEND Specialist
PROC: 0D164ZA Bypass Stomach to Jejunum, Percutaneous Endoscopic Approach (ICD-10-PCS; principal; 2017-09-30)
PROC: 0DJ08ZZ Inspection of Upper Intestinal Tract, Via Natural or Artificial Opening Endoscopic (ICD-10-PCS; 2017-10-01)
PROC: 30233N1 Transfusion of Nonautologous Red Blood Cells into Peripheral Vein, Percutaneous Approach (ICD-10-PCS; 2017-10-01)
DX: E66.01 Morbid (severe) obesity due to excess calories (principal); K92.2 Gastrointestinal hemorrhage, unspecified; D62 Acute posthemorrhagic anemia; E11.9 Type 2 diabetes mellitus without complications; Z68.42 Body mass index [BMI] 45.0-49.9, adult; N39.3 Stress incontinence (female) (male); M25.50 Pain in unspecified joint; K28.9 Gastrojejunal ulcer, unspecified as acute or chronic, without hemorrhage or perforation
CPT/HCPCS: 36415; 36416; 36430; 78278; 80048; 85025; 86850; 86900; 86901; 94760; 96374; A4216; A9604; C9113; J0131; J0694; J1100; J1644; J1650; J1885; J2001; J2550; J2704; J3010; J3420; J7050; P9016; Q0162

== ENCOUNTER 2020-04-20 17:18 | Emergency (ER) | payer OTHER ==
--- NOTE | 2020-04-20 17:40 | RAD ---
EXAM: Single view of the chest HISTORY: Code Green with tachypnea COMPARISON: None FINDINGS: Single view of the chest shows a normal sized cardiomediastinal silhouette. There is no lore dence of consolidation, mass, or pleural effusion. No acute osseous abnormality. There may be surgical clips in the upper abdomen. IMPRESSION: No evidence of acute cardiopulmonary disease
[2020-04-20 17:51] LABS: #Basophils 0.1 thou/uL (0.0-0.2); #Eosinphils 0.2 thou/uL (0.0-0.7); #Lymphocytes 2.3 thou/uL (1.20-3.40); #Monocytes 0.6 thou/uL (0.11-0.59); #Neutrophils 2.3 thou/uL (1.40-6.50); %Basophils 1.8 % (0.0-1.0); %Eosinophils 4.4 % (0.0-10.0); %Lymphocytes 41.6 % (21.0-51.0); %Neutrophils 42.2 % (42.0-75.0); Hemoglobin 12.3 g/dL (12.0-16.0); Mean Corpuscular HGB CONC 34.7 g/dL (32.0-36.0); Mean Corpuscular Hemoglobin 29.8 pg (27.0-31.0); Mean Corpuscular Volume 85.9 fL (78.0-98.0); Mean Platelet Volume 7.4 fL (7.4-10.4); Platelet Count 258 thou/uL (130-400); Red Blood Cell (RBC) Count 4.13 mill/uL (4.20-5.40); White Blood Cell (WBC) Count 5.5 thou/uL (4.8-10.8)
[2020-04-20 18:07] LABS: ALT (SGPT) 16 U/L (8-55); AST (SGOT) 20 U/L (5-34); Albumin 4.1 g/dL (3.5-5.0); Alkaline Phosphatase 69 U/L (40-110); Anion Gap 18 mmol/L (10-20); BUN (Urea Nitrogen) 19 mg/dL (7.0-18.7); Bilirubin, Total 0.2 mg/dL (0.2-1.2); CK (CPK) 105 U/L (29-168); Calc. Creatinine Clearance 0 mL/min (70-130); Calcium 9.1 mg/dL (7.8-10.44); Carbon Dioxide 19 mmol/L (22-29); Chloride 107 mmol/L (98-107); Estimated GFR-MDRD Greater than 90; Globulin 3.7 g/dL (2.4-3.5); Glucose 91 mg/dL (70-105); Potassium 4.6 mmol/L (3.5-5.1); Protein, Total 7.8 g/dL (6.0-8.3); Sodium 139 mmol/L (136-145)
--- NOTE | 2020-04-28 16:33 | EKG ---
Test Reason : Blood Pressure : / mmHG Vent. Rate : 093 BPM Atrial Rate : 093 BPM P-R Int : 148 ms QRS Dur : 070 ms QT Int : 346 ms P-R-T Axes : 055 027 010 degrees QTc Int : 430 ms Normal sinus rhythm Possible Left atrial enlargement Borderline ECG Confirmed by PETE BROTHERS DO ([id number]), video tape editor MARTA LUJAN ([id number]) on 04/28/2020 4:33:30 PM Referred By: Confirmed By:PETE BROTHERS DO
== END 2020-04-20 22:00 | disposition home or self-care (01) ==
LOC: ERS 17:18
DX: R07.2 Precordial pain (principal); F32.9 Major depressive disorder, single episode, unspecified; Z79.899 Other long term (current) drug therapy
CPT/HCPCS: 36415; 71045; 80053; 82550; 84484; 85025; 93005

== ENCOUNTER 2021-06-04 12:52 | Outpatient (CLI) | payer OTHER | END 2021-06-04 12:53 | disposition home or self-care (01) | LOC: BICRAD 12:52 | PROVIDERS: ATTEND Internal Medicine | DX: R06.00 Dyspnea, unspecified (principal) | CPT/HCPCS: 71046 ==

== ENCOUNTER 2022-03-17 07:06 | Outpatient (CLI) | payer BC | END 2022-03-17 07:07 | disposition home or self-care (01) | LOC: BICMAMMO 07:06 | PROVIDERS: ATTEND Internal Medicine | DX: Z12.31 Encounter for screening mammogram for malignant neoplasm of breast (principal); N63.20 Unspecified lump in the left breast, unspecified quadrant | CPT/HCPCS: 77063; 77067 ==

== ENCOUNTER 2022-03-20 08:03 | Outpatient (CLI) | payer BC | END 2022-03-20 08:04 | disposition home or self-care (01) | LOC: BICULT 08:03 | PROVIDERS: ATTEND Internal Medicine | DX: N63.25 Unspecified lump in the left breast, overlapping quadrants (principal) ==

== ENCOUNTER 2023-03-22 22:40 | Emergency (ER) | payer BC ==
[2023-03-22] MEDS ORDERED: Ipratropium Bromide 2.5 ml Neb ONE (23:13)
[2023-03-22] MEDS ORDERED: Dexameth. Sod Phosp. 10 MG/ML (CHEMO USE ONLY) ONE (23:52)
[2023-03-23 00:43] LABS: SARS-CoV-2 NAA Rapid Test Not Detected (NotDetected)
== END 2023-03-23 01:21 | disposition home or self-care (01) ==
LOC: ERS 22:40
DX: J45.901 Unspecified asthma with (acute) exacerbation (principal); J20.9 Acute bronchitis, unspecified; Z20.822 Contact with and (suspected) exposure to COVID-19
CPT/HCPCS: 71045; 94640; J1100; J7611

== ENCOUNTER 2023-07-03 10:19 | Outpatient (CLI) | payer BC | END 2023-07-03 10:20 | disposition home or self-care (01) | LOC: BICMAMMO 10:19 | PROVIDERS: ATTEND Internal Medicine | DX: Z12.31 Encounter for screening mammogram for malignant neoplasm of breast (principal) | CPT/HCPCS: 77063; 77067 ==

== ENCOUNTER 2024-03-23 17:58 | Emergency (ER) | payer BC | END 2024-03-23 19:06 | disposition home or self-care (01) | LOC: ERS 17:58 | DX: S50.12XA Contusion of left forearm, initial encounter (principal); J45.909 Unspecified asthma, uncomplicated; Z55.6 Problems related to health literacy; W01.0XXA Fall on same level from slipping, tripping and stumbling without subsequent striking against object, initial encounter; Y93.89 Activity, other specified; Y92.61 Building [any] under construction as the place of occurrence of the external cause | CPT/HCPCS: 99283 ==

== ENCOUNTER 2025-04-20 22:00 | Emergency (ER) | payer BC, OTHER ==
[2025-04-20 22:41] LABS: #Basophils Less than 0.03 10x3/uL (0.0-0.2); #Eosinophils 0.15 10x3/uL (0.0-0.7); #Monocytes 0.78 10x3/uL (0.11-0.59); #Neutrophils 4.01 10x3/uL (1.40-6.50); %Basophils 0.3 % (0.0-1.0); %Eosinophils 2.1 % (0.0-10.0); %Lymphocytes 29.4 % (21.0-51.0); %Monocytes 11.1 % (0.0-10.0); %Neutrophils 56.8 % (42.0-75.0); Hematocrit 28.2 % (36.0-47.0); Hemoglobin 8.9 g/dL (12.0-16.0); Mean Corpuscular Hemoglobin 21.8 pg (27.0-31.0); Mean Corpuscular Volume 69.1 fL (78.0-98.0); Platelet Count 313 10x3/uL (130-400); Red Blood Cell (RBC) Count 4.08 mill/uL (4.20-5.40); White Blood Cell (WBC) Count 7.05 10x3/uL (4.8-10.8)
[2025-04-20 22:43] LABS: Bacteria/HPF 3+ HPF (None Seen); CAUTI Indications for Culture Alt mental st,lethar; Glucose, Urine (Dipstick) Normal (Negative); Leukocyte Negative Leu/uL (Negative); Protein, Urine (Dipstick) Negative (Neg-Trace); RBC/HPF 0-3 HPF (0-3); Specific Gravity, Urine 1.007 (1.002-1.036); WBC/HPF 0-3 HPF (0-3)
[2025-04-20 22:51] LABS: BHCG - Serum Negative (NEGATIVE); Pregs Control Background? CLEAR/WHITE (CLR/WHITE); Pregs Control Bar Appear? YES (CONTROL BAR)
[2025-04-20 22:51] LABS: Urine Culture Reflex No No
[2025-04-20 23:00] LABS: ALT (SGPT) 10 U/L (Less than 34); AST (SGOT) 25 U/L (11-34); Albumin 3.8 g/dL (3.1-4.5); Alkaline Phosphatase 65 U/L (40-110); Anion Gap 16 mmol/L (10-20); BUN (Urea Nitrogen) 16 mg/dL (7.0-18.7); Bilirubin, Total 0.2 mg/dL (0.3-1.2); Calc. Creatinine Clearance 0 mL/min (70-130); Calcium 9.2 mg/dL (7.8-10.44); Carbon Dioxide 17 mmol/L (22-29); Chloride 109 mmol/L (98-107); Globulin 3.6 g/dL (2.4-3.5); Glucose 99 mg/dL (70-105); Potassium 4.3 mmol/L (3.5-5.1); Sodium 138 mmol/L (136-145)
[2025-04-20] MEDS ORDERED: Nitroglycerin 0.4 MG TAB 1 EACH ONE (23:12)
[2025-04-20] MEDS ORDERED: Nitroglycerin 0.4 MG TAB (25 Tab Bottle) ONE (23:15)
== END 2025-04-20 23:39 | disposition home or self-care (01) ==
LOC: ERS 22:00
DX: I10 Essential (primary) hypertension (principal); D50.9 Iron deficiency anemia, unspecified
CPT/HCPCS: 71045; 80053; 81001; 84484; 84703; 85025; 93005